=== PATIENT | male | born 1965 | race Caucasian/White ===

== ENCOUNTER → 2019-07-22 11:41 | Outpatient (CLI) | payer MEDICAID, SELFPAY | PROVIDERS: PCP Emergency Medicine; Referring Provider Emergency Medicine; Visit Provider Family Medicine | DX: I87.2 Venous insufficiency (chronic) (peripheral) (principal); L97.221 Non-pressure chronic ulcer of left calf limited to breakdown of skin; R60.0 Localized edema | CPT/HCPCS: 11042; 99203; 99213 ==

== ENCOUNTER → 2019-07-25 09:38 | Outpatient (CLI) | payer MEDICAID, SELFPAY | PROVIDERS: PCP Emergency Medicine; Referring Provider Family Medicine; Visit Provider Family Medicine | DX: I87.2 Venous insufficiency (chronic) (peripheral) (principal); L97.821 Non-pressure chronic ulcer of other part of left lower leg limited to breakdown of skin | CPT/HCPCS: 29581; 87070; 87075; 87077; 87186; 87205 ==

== ENCOUNTER → 2019-08-01 11:25 | Outpatient (CLI) | payer MEDICAID, SELFPAY | PROVIDERS: PCP Emergency Medicine; Referring Provider Emergency Medicine; Visit Provider Family Medicine | DX: I87.2 Venous insufficiency (chronic) (peripheral) (principal); L97.825 Non-pressure chronic ulcer of other part of left lower leg with muscle involvement without evidence of necrosis; L97.225 Non-pressure chronic ulcer of left calf with muscle involvement without evidence of necrosis; B95.7 Other staphylococcus as the cause of diseases classified elsewhere; L08.9 Local infection of the skin and subcutaneous tissue, unspecified | CPT/HCPCS: 11042; 99214 ==

== ENCOUNTER → 2019-08-08 15:22 | Outpatient (CLI) | payer MEDICAID, SELFPAY | PROVIDERS: PCP Emergency Medicine; Referring Provider Emergency Medicine; Visit Provider Family Medicine | DX: I87.2 Venous insufficiency (chronic) (peripheral) (principal); L97.825 Non-pressure chronic ulcer of other part of left lower leg with muscle involvement without evidence of necrosis; I73.9 Peripheral vascular disease, unspecified | CPT/HCPCS: 11042; 99214 ==

== ENCOUNTER → 2019-09-08 16:26 | Outpatient (CLI) | payer OTHER, MEDICAID, SELFPAY | PROVIDERS: PCP Emergency Medicine; Referring Provider Emergency Medicine; Visit Provider Family Medicine | DX: I87.2 Venous insufficiency (chronic) (peripheral) (principal); L97.821 Non-pressure chronic ulcer of other part of left lower leg limited to breakdown of skin; L97.221 Non-pressure chronic ulcer of left calf limited to breakdown of skin; R23.1 Pallor | CPT/HCPCS: 11042; 11045; 99213 ==

== ENCOUNTER → 2019-10-04 11:34 | Outpatient (CLI) | payer OTHER, SELFPAY | PROVIDERS: PCP Emergency Medicine; Referring Provider Emergency Medicine; Visit Provider Family Medicine | DX: I87.2 Venous insufficiency (chronic) (peripheral) (principal); L97.821 Non-pressure chronic ulcer of other part of left lower leg limited to breakdown of skin; R23.1 Pallor | CPT/HCPCS: 99213 ==

== ENCOUNTER → 2019-10-26 10:24 | Outpatient (CLI) | payer OTHER, SELFPAY | PROVIDERS: PCP Emergency Medicine; Referring Provider Emergency Medicine; Visit Provider Family Medicine | DX: I87.2 Venous insufficiency (chronic) (peripheral) (principal); L97.821 Non-pressure chronic ulcer of other part of left lower leg limited to breakdown of skin; R23.1 Pallor | CPT/HCPCS: 99213 ==

== ENCOUNTER → 2019-11-16 14:09 | Outpatient (CLI) | payer OTHER, SELFPAY | PROVIDERS: PCP Emergency Medicine; Referring Provider Emergency Medicine; Visit Provider Family Medicine | DX: I87.2 Venous insufficiency (chronic) (peripheral) (principal); L97.821 Non-pressure chronic ulcer of other part of left lower leg limited to breakdown of skin; R23.1 Pallor | CPT/HCPCS: 99213 ==

== ENCOUNTER → 2019-12-07 13:24 | Outpatient (CLI) | payer OTHER, SELFPAY | PROVIDERS: PCP Emergency Medicine; Referring Provider Emergency Medicine; Visit Provider Family Medicine | DX: I87.2 Venous insufficiency (chronic) (peripheral) (principal); L97.821 Non-pressure chronic ulcer of other part of left lower leg limited to breakdown of skin; R23.1 Pallor | CPT/HCPCS: 99213 ==

== ENCOUNTER → 2019-12-28 10:14 | Outpatient (CLI) | payer OTHER, SELFPAY | PROVIDERS: PCP Emergency Medicine; Referring Provider Emergency Medicine; Visit Provider Family Medicine | DX: I87.2 Venous insufficiency (chronic) (peripheral) (principal); L97.821 Non-pressure chronic ulcer of other part of left lower leg limited to breakdown of skin; R23.1 Pallor | CPT/HCPCS: 87070; 87075; 87077; 87147; 87205; 97597; 99212 ==

== ENCOUNTER → 2020-01-17 13:59 | Outpatient (CLI) | payer OTHER, SELFPAY | PROVIDERS: PCP Emergency Medicine; Referring Provider Emergency Medicine; Visit Provider Family Medicine | DX: I87.2 Venous insufficiency (chronic) (peripheral) (principal); L97.821 Non-pressure chronic ulcer of other part of left lower leg limited to breakdown of skin; R23.1 Pallor; S81.012A Laceration without foreign body, left knee, initial encounter; B95.1 Streptococcus, group B, as the cause of diseases classified elsewhere | CPT/HCPCS: 11042; 97597; 99213; 99214 ==

== ENCOUNTER → 2020-06-13 12:39 | Outpatient (CLI) | payer OTHER, MEDICAID, SELFPAY ==
--- NOTE | 2020-06-13 12:44 | DI.RAD.S_ITS ---
PROCEDURE: XR CHEST 2V INDICATIONS: dyspnea TECHNIQUE: 2 views of the chest were acquired. COMPARISON: None. FINDINGS: Surgical changes and devices: None. Lungs and pleura: Lungs are clear. No pleural effusions or pneumothorax. Mediastinum: Mediastinal contours are normal. Heart size is enlarged. Bones and chest wall: No suspicious bony abnormalities. Soft tissues appear unremarkable. IMPRESSION: Cardiomegaly. Dictated by: Herbert Lozoya [facility] Interpreted: Kishan Montiel MD on 06/13/2020 at 13:20 Approved by: Kishan Montiel M.D. on 06/13/2020 at 15:28
[2020-06-13 13:36] LABS: Add Manual Diff / Slide Review NO; Basophils Absolute Auto 0 /uL (0-100); Basophils Percent Auto 0.4 % (0-2); Eosinophils Absolute Auto 200 /uL (0-450); Eosinophils Percent Auto 1.9 % (2-4); Hematocrit 51.3 % (41-53); Hemoglobin 17.3 g/dL (13.5-17.5); Lymphocytes Absolute Auto 2100 /uL (1100-4500); Lymphocytes Percent Auto 25.7 % (25-40); Mean Corpuscular HGB Conc 33.8 % (30-36); Mean Corpuscular Hemoglobin 29.6 PG (26-34); Mean Corpuscular Volume 87.5 fL (80-100); Monocytes Absolute Auto 600 /uL (0-900); Neutrophils Absolute Auto 5300 /uL (1500-7000); Platelet Count 210 X10^3/uL (150-400); Red Blood Cell Count 5.87 X10^6/uL (4.5-5.9); Red Cell Distribution Width 14.5 % (11.6-14.8); White Blood Cell Count 8.1 X10^3/uL (4.5-11.0)
[2020-06-13 13:45] LABS: Hemoglobin A1C% w Est Avg Glu 6.3 % (4.0-6.0)
[2020-06-13 13:53] LABS: Alanine Aminotransferase 42 IU/L (<50); Albumin 4.2 g/dL (3.5-5.0); Albumin Globulin Ratio 1.5 (1.0-2.8); Alkaline Phosphatase 69 U/L (38-126); Aspartate Aminotransferase 40 IU/L (17-59); BUN Creatinine Ratio 26.1 (6-22); Bilirubin Total 0.9 mg/dL (0.2-1.3); Blood Urea Nitrogen 23 mg/dL (9-20); Calcium 9.1 mg/dL (8.4-10.2); Carbon Dioxide 34 mmol/L (22-32); Chloride 98 mmol/L (98-107); Cholesterol 174 mg/dL (140-199); Estimated Glomerular Filt Rate > 60.0 mL/min (>60); Globulin 2.8 g/dL (1.7-4.1); Glucose 110 mg/dL (70-100); HDL Cholesterol 33 mg/dL (40-60); LDL Cholesterol Calculated 108 mg/dL (<100); Potassium 4.2 mmol/L (3.4-5.1); Sodium 138 mmol/L (137-145); Triglycerides 167 mg/dL (35-150)
[2020-06-13 14:20] LABS: TSH w/ Reflex to FT4 1.74 uIU/mL (0.47-4.68)
[2020-06-13 14:25] LABS: HEMOLYSIS < 15 (0-50); Prostate Specific Antigen Scrn 0.337 ng/mL (0.1-4.0)
[2020-06-14 16:41] LABS: Hep C Virus Ab w/Reflex Quant NEGATIVE s/c (NEGATIVE)
== END ==
PROVIDERS: PCP Internal Medicine; Referring Provider Internal Medicine; Visit Provider Internal Medicine
DX: J44.9 Chronic obstructive pulmonary disease, unspecified (principal); I10 Essential (primary) hypertension; R73.9 Hyperglycemia, unspecified; Z13.1 Encounter for screening for diabetes mellitus; Z13.220 Encounter for screening for lipoid disorders; Z13.6 Encounter for screening for cardiovascular disorders; Z12.5 Encounter for screening for malignant neoplasm of prostate
CPT/HCPCS: 36415; 71046; 80053; 80061; 83036; 84443; 85025; 86803; G0103

== ENCOUNTER → 2020-07-19 13:00 | Outpatient (CLI) | payer OTHER, MEDICAID, SELFPAY ==
[2020-07-19 13:49] LABS: COVID19 -Nasal RAPID Negative (Negative)
== END ==
PROVIDERS: PCP Internal Medicine; Referring Provider Internal Medicine; Visit Provider Internal Medicine
DX: Z20.822 Contact with and (suspected) exposure to COVID-19 (principal)
CPT/HCPCS: 87635; C9803

== ENCOUNTER 2020-07-19 13:23 | Emergency (ER) | payer OTHER, MEDICAID, SELFPAY ==
[2020-07-19 13:28] VITALS: BP 185/108; PULSE 54; RESP 28; TEMP 36.2; O2SAT 94; BMI 41.9
--- NOTE | 2020-07-19 19:11 | ED.SOB ---
HPI - SOB/Dyspnea General Chief Complaint: Shortness of Breath/Dyspnea Stated Complaint: SOB Source: patient Mode of arrival: Wheelchair Limitations: no limitations Related Data Previous Rx's Medication Instructions Recorded lisinopril 20 mg tablet 20 mg PO DAILY #90 tab 06/11/20 albuterol sulfate 90 mcg/actuation 2 puff INHALATION Q4-6H PRN #18 g 07/09/20 aerosol inhaler Allergies Allergy/AdvReac Type Severity Reaction Status Date / Time codeine Allergy Unknown Verified 07/19/20 13:29 meperidine [From DEMEROL] Allergy Unknown CRAWL OUT Verified 07/19/20 13:29 OF SKIN Patient History Medical History (Updated 07/19/20 @ 14:12 by Patrizia Dee, RN) BMI 39.0-39.9,adult Chicken pox COPD (chronic obstructive pulmonary disease) (~2019) Family history not known due to adoption Hypertension Surgical History (Updated 06/12/20 @ 21:23 by Christiana Zhong) Anesthesia Status post debridement (~2019) Social History (Updated 09/15/19 @ 14:40 by Jenny Qureshi RN) Smoking Status: Former smoker alcohol intake: never substance use type: marijuana Smoking Status: Former smoker alcohol intake frequency: holidays/special occasions only Substance Use Type: marijuana Exam Initial Vital Signs Initial Vital Signs: Vital Signs Temperature 97.1 F L 07/19/20 13:28 Pulse Rate 54 L 07/19/20 13:28 Respiratory Rate 28 H 07/19/20 13:28 Blood Pressure 185/108 H 07/19/20 13:28 Pulse Oximetry 94 07/19/20 13:28 Course Vital Signs Vital signs: Vital Signs - 8 hr 07/19/20 13:28 Temperature 97.1 F L Pulse Rate 54 L Respiratory Rate 28 H Blood Pressure 185/108 H Pulse Oximetry 94 Discharge Plan Departure Patient Disposition: Left Without Being Seen Clinical Impression: Patient left without being seen
== END 2020-07-19 14:00 | disposition left against medical advice (07) ==
PROVIDERS: Emergency Provider Emergency Medicine; PCP Internal Medicine
DX: R06.02 Shortness of breath (principal)
CPT/HCPCS: 99281

== ENCOUNTER 2020-07-20 15:13 | Emergency (ER) | payer OTHER, MEDICAID, SELFPAY ==
[2020-07-20] VITALS (13 sets, daily range): BP systolic 150–193; BP diastolic 81–164; PULSE 88–97; RESP 10–30; TEMP 32–37; O2SAT 91–98; BMI 45.1
--- NOTE | 2020-07-20 15:17 | DI.RAD.S_ITS ---
PROCEDURE: XR CHEST 1V INDICATIONS: Shortness of breath and hypoxia TECHNIQUE: One view of the chest was acquired. COMPARISON: [facility], [place], XR CHEST 2V, 06/13/2020, 12:56. FINDINGS: Surgical changes and devices: None. Lungs and pleura: Mild pulmonary vascular congestion is seen. No focal infiltrate. No pleural effusions or pneumothorax. Mediastinum: Mediastinal contours appear normal. Heart size is enlarged. Bones and chest wall: No suspicious bony lesions. Overlying soft tissues appear unremarkable. IMPRESSION: Cardiomegaly and mild congestion. No definite focal infiltrate. No pleural effusion or pneumothorax. Dictated by: Nacho Gaitan M.D. on 07/20/2020 at 15:54 Approved by: Nacho Gaitan M.D. on 07/20/2020 at 15:56
--- NOTE | 2020-07-20 15:25 | ED.GENADULT ---
HPI - General Adult General Chief complaint: Shortness of Breath/Dyspnea Stated complaint: SOB Time Seen by Provider: 07/20/20 15:15 Source: patient Mode of arrival: Wheelchair Limitations: no limitations History of Present Illness HPI narrative: 55-year-old male who is brought to the emergency department from the respiratory clinic after he was found to be hypoxic and blue and ashen in color. Report was that yesterday the patient went to the respiratory clinic for a COVID test because of a schedule pulmonary function test today. When he had the COVID test performed he was noticed to be hypoxic and in respiratory distress. He is brought to the emergency department after being triaged he left the department. He returned to the respiratory clinic today for his pulmonary function test and was again found to be hypoxic in look very poorly so was brought to the emergency department. Patient is here with his girlfriend. They state that over the past month he has gained approximately 30 lb and has had 10 lb weight gain over the past week. He has also had respiratory distress. He does have a new primary doctor which she has seen 2 times. The pulmonary function test were ordered by his primary doctor because of his respiratory issues. Patient denies any chest pain. He states that he feels like he is swollen all over. He does have a history of high blood pressure. Has not seen a primary doctor in a very long time until just the past 30-60 days. Related Data Previous Rx's Medication Instructions Recorded lisinopril 20 mg tablet 20 mg PO DAILY #90 tab 06/11/20 albuterol sulfate 90 mcg/actuation 2 puff INHALATION Q4-6H PRN #18 g 07/09/20 aerosol inhaler Allergies Allergy/AdvReac Type Severity Reaction Status Date / Time codeine Allergy Unknown Verified 07/20/20 15:26 meperidine [From DEMEROL] Allergy Unknown CRAWL OUT Verified 07/20/20 15:26 OF SKIN Review of Systems Constitutional Constitutional: Denies fever(s) and Denies headache(s) Eyes Eyes: Denies change in vision Comments: Swelling around eyes ENT Ears, Nose, Mouth, and Throat: Denies headache(s) and Denies sinus pain Cardiovascular Cardiovascular: Denies chest pain, Reports dyspnea and Reports dyspnea on exertion Respiratory Respiratory: Denies cough, Reports dyspnea, Reports dyspnea on exertion and Denies wheezing Gastrointestinal Gastrointestinal: Denies abdominal pain, Reports bloating, Denies change in bowel habits, Denies nausea and Denies vomiting Genitourinary Genitourinary: Denies dysuria Genitourinary: Denies dysuria Musculoskeletal Musculoskeletal: Denies arthralgias and Denies myalgias Integumentary/Breasts Skin/Breast: Denies lesions and Denies rash Neurologic Neurologic: Denies behavioral changes, Denies confusion and Denies headache(s) Psychiatric Psychiatric: Denies behavioral changes and Denies confusion Hematologic/Lymphatic Hematologic/Lymphatic: Denies easy bleeding On Anticoagulants: No Allergic/Immunologic Allergic/Immunologic: Denies urticaria and Denies wheezing Patient History Medical History BMI 39.0-39.9,adult Chicken pox COPD (chronic obstructive pulmonary disease) (~2019) Family history not known due to adoption Hypertension Surgical History (Updated 06/12/20 @ 21:23 by Christiana Zhong) Anesthesia Status post debridement (~2019) Social History Smoking Status: Former smoker alcohol intake: never substance use type: marijuana Smoking Status: Former smoker alcohol intake frequency: holidays/special occasions only Substance Use Type: marijuana Exam Initial Vital Signs Initial Vital Signs: Vital Signs Pulse Rate 96 H 07/20/20 15:18 Respiratory Rate 23 07/20/20 15:18 Pulse Oximetry 98 07/20/20 15:18 Const General: cooperative, comfortable and well developed Limitations: mental status not altered HENMT Head: normal to inspection and normocephalic Eyes Periorbital: periorbital findings abnormal bilaterally periorbital swelling Neck Neck: anterior neck swelling Chest Chest: No crepitus and No tenderness Resp Effort & Inspection: labored and tachypneic Auscultation: rhonchi Cardio Rate: regular rate Rhythm: regular rhythm GI Inspection: distended Palpation: firm and No tender General: bladder normal to palpation Skin Other: Patient does have some superficial lesions to his right knee that do not appear to be infected. Also has other various wounds in various stages of healing throughout his body. Neuro General: patient alert, patient awake, patient oriented x3 and moves all extremities Other: Patient is somnolent but easily arousable Extrem General: normal to inspection and edema Psych Appearance: grossly normal and well kempt Scores GCS [place] coma scale eye opening: Spontaneous Titi coma scale verbal response: Orientated Itti coma scale motor response: Obey commands [place] coma scale total score: 15 Course Orders Ordered: ED Orders 07/20/20 15:16 Complete Blood Count AUTO DIFF Stat Comprehensive Metabolic Panel Stat D Dimer Stat Lactate (Lactic Acid) Stat Lipase Stat NT-proBNP (BNP-Adult 18+) Stat Partial Thromboplastin Time Stat Procalcitonin Stat Prothrombin Time INR Stat Troponin & CK Cardiac Panel Stat 07/20/20 15:17 XR chest 1V Stat EKG-12 Lead Stat 07/20/20 15:23 Arterial Blood Gas Stat 07/20/20 15:39 COVID19 - 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 (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/PCR) Stat 07/20/20 17:04 Arterial Blood Gas Stat Discontinued Medications Furosemide (Furosemide 100 Mg/10 Ml Vial) 60 mg IV NOW ONE Stop: 07/20/20 15:26 Last Admin: 07/20/20 15:33 Dose: 60 mg Documented by: BORIS Nitroglycerin (Nitroglycerin Oint 1 Inch/Gm Oint...G.) 1 inch TOP NOW ONE Stop: 07/20/20 15:26 Last Admin: 07/20/20 15:33 Dose: 1 inch Documented by: BORIS Vital Signs Vital signs: Vital Signs - 8 hr 07/20/20 15:18 07/20/20 15:21 07/20/20 15:30 Temperature 98.6 F Pulse Rate 96 H 97 H 96 H Respiratory Rate 23 24 29 H Blood Pressure 187/164 H Pulse Oximetry 98 94 95 07/20/20 15:31 07/20/20 15:33 07/20/20 15:53 Temperature Pulse Rate 97 H 96 H 96 H Respiratory Rate 25 H 19 Blood Pressure 193/133 H 193/133 H 176/141 H Pulse Oximetry 97 96 07/20/20 16:00 07/20/20 17:00 07/20/20 17:39 Temperature Pulse Rate 96 H 89 Respiratory Rate 24 22 Blood Pressure 171/108 H Pulse Oximetry 96 96 94 07/20/20 17:52 07/20/20 18:00 Temperature Pulse Rate 91 H 88 Respiratory Rate 22 22 Blood Pressure 164/89 H 150/81 H Pulse Oximetry 91 94 Medical Decision Making Medical Records Medical records reviewed: Yes I reviewed the patient's medical records. Lab Data Lab results reviewed: Yes I reviewed the patient's lab results. Result diagrams: 07/20/20 15:16 07/20/20 15:16 Labs: Lab Results 07/20/20 07/20/20 07/20/20 Range/Units 15:16 15:16 15:16 WBC 10.1 (4.5-11.0) X10^3/uL RBC 5.66 (4.5-5.9) X10^6/uL Hgb 16.8 (13.5-17.5) g/dL Hct 51.2 (41-53) % MCV 90.4 (80-100) fL MCH 29.7 (26-34) PG MCHC 32.9 (30-36) % RDW 15.6 H (11.6-14.8) % Plt Count 231 (150-400) X10^3/uL Neut % (Auto) 80.2 H (50-75) % Lymph % (Auto) 12.6 L (25-40) % Dickson % (Auto) 6.6 (3-14) % Eos % (Auto) 0.0 L (2-4) % Baso % (Auto) 0.6 (0-2) % Neut # (Auto) 8100 H (1171-6247) /uL Lymph # (Auto) 1300 (6606-3291) /uL Dickson # (Auto) 700 (0-900) /uL Eos # (Auto) 0 (0-450) /uL Baso # (Auto) 100 (0-100) /uL PT 16.8 H (10.1-12.7) SECONDS INR 1.5 H (0.9-1.3) APTT 35 (26.4-36.2) SECONDS D-Dimer (<230) ng/mL ABG pH (7.35-7.45) ABG pCO2 (35-45) mmHg ABG pO2 (80-100) mmHg ABG HCO3 (22-26) mmol/L ABG Total CO2 (21-31) mmol/L ABG O2 Saturation (95-100) % ABG Base Excess (-2-2) mmol/L FiO2 Sodium 139 (137-145) mmol/L Potassium 4.7 (3.4-5.1) mmol/L Chloride 100 (98-107) mmol/L Carbon Dioxide 35 H (22-32) mmol/L BUN 21 H (9-20) mg/dL Creatinine 0.87 (0.66-1.25) mg/dL Estimated GFR > 60.0 (>60) mL/min BUN/Creatinine Ratio 24.1 H (6-22) Glucose 116 H (70-100) mg/dL Lactate (0.7-2.1) mmol/L Calcium 8.7 (8.4-10.2) mg/dL Total Bilirubin 0.5 (0.2-1.3) mg/dL AST 89 H (17-59) IU/L ALT 71 H (<50) IU/L Alkaline Phosphatase 58 (38-126) U/L Total Creatine Kinase 591 H (55-170) U/L CK-MB (CK-2) 12.60 H (<2.37) ng/mL CK-MB (CK-2) Rel Index 2.1 (1.5-5.0) % Troponin I 0.099 H (0.01-0.034) ng/mL NT-Pro-B Natriuret Pep 43528 H (<125) pg/mL Total Protein 5.8 L (6.3-8.2) g/dL Albumin 3.2 L (3.5-5.0) g/dL Globulin 2.6 (1.7-4.1) g/dL Albumin/Globulin Ratio 1.2 (1.0-2.8) Lipase 80 (23-300) U/L Procalcitonin (<0.5) ng/mL SARS-CoV-2 (PCR) (Negative) 07/20/20 07/20/20 07/20/20 Range/Units 15:16 15:16 15:16 WBC (4.5-11.0) X10^3/uL RBC (4.5-5.9) X10^6/uL Hgb (13.5-17.5) g/dL Hct (41-53) % MCV (80-100) fL MCH (26-34) PG MCHC (30-36) % RDW (11.6-14.8) % Plt Count (150-400) X10^3/uL Neut % (Auto) (50-75) % Lymph % (Auto) (25-40) % Dickson % (Auto) (3-14) % Eos % (Auto) (2-4) % Baso % (Auto) (0-2) % Neut # (Auto) (6655-2126) /uL Lymph # (Auto) (8063-9043) /uL Dickson # (Auto) (0-900) /uL Eos # (Auto) (0-450) /uL Baso # (Auto) (0-100) /uL PT (10.1-12.7) SECONDS INR (0.9-1.3) APTT (26.4-36.2) SECONDS D-Dimer 357 H (<230) ng/mL ABG pH (7.35-7.45) ABG pCO2 (35-45) mmHg ABG pO2 (80-100) mmHg ABG HCO3 (22-26) mmol/L ABG Total CO2 (21-31) mmol/L ABG O2 Saturation (95-100) % ABG Base Excess (-2-2) mmol/L FiO2 Sodium (137-145) mmol/L Potassium (3.4-5.1) mmol/L Chloride (98-107) mmol/L Carbon Dioxide (22-32) mmol/L BUN (9-20) mg/dL Creatinine (0.66-1.25) mg/dL Estimated GFR (>60) mL/min BUN/Creatinine Ratio (6-22) Glucose (70-100) mg/dL Lactate 1.7 (0.7-2.1) mmol/L Calcium (8.4-10.2) mg/dL Total Bilirubin (0.2-1.3) mg/dL AST (17-59) IU/L ALT (<50) IU/L Alkaline Phosphatase (38-126) U/L Total Creatine Kinase (55-170) U/L CK-MB (CK-2) (<2.37) ng/mL CK-MB (CK-2) Rel Index (1.5-5.0) % Troponin I (0.01-0.034) ng/mL NT-Pro-B Natriuret Pep (<125) pg/mL Total Protein (6.3-8.2) g/dL Albumin (3.5-5.0) g/dL Globulin (1.7-4.1) g/dL Albumin/Globulin Ratio (1.0-2.8) Lipase (23-300) U/L Procalcitonin 0.07 (<0.5) ng/mL SARS-CoV-2 (PCR) (Negative) 07/20/20 07/20/20 07/20/20 Range/Units 15:23 15:39 17:04 WBC (4.5-11.0) X10^3/uL RBC (4.5-5.9) X10^6/uL Hgb (13.5-17.5) g/dL Hct (41-53) % MCV (80-100) fL MCH (26-34) PG MCHC (30-36) % RDW (11.6-14.8) % Plt Count (150-400) X10^3/uL Neut % (Auto) (50-75) % Lymph % (Auto) (25-40) % Dickson % (Auto) (3-14) % Eos % (Auto) (2-4) % Baso % (Auto) (0-2) % Neut # (Auto) (1903-8855) /uL Lymph # (Auto) (7604-0382) /uL Dickson # (Auto) (0-900) /uL Eos # (Auto) (0-450) /uL Baso # (Auto) (0-100) /uL PT (10.1-12.7) SECONDS INR (0.9-1.3) APTT (26.4-36.2) SECONDS D-Dimer (<230) ng/mL ABG pH 7.30 L 7.37 (7.35-7.45) ABG pCO2 68.2 H* 64.1 H* (35-45) mmHg ABG pO2 84 76 L (80-100) mmHg ABG HCO3 34 H 37 H (22-26) mmol/L ABG Total CO2 36 H 39 H (21-31) mmol/L ABG O2 Saturation 95 94 L (95-100) % ABG Base Excess 8.0 H 12.0 H (-2-2) mmol/L FiO2 28 30 Sodium (137-145) mmol/L Potassium (3.4-5.1) mmol/L Chloride (98-107) mmol/L Carbon Dioxide (22-32) mmol/L BUN (9-20) mg/dL Creatinine (0.66-1.25) mg/dL Estimated GFR (>60) mL/min BUN/Creatinine Ratio (6-22) Glucose (70-100) mg/dL Lactate (0.7-2.1) mmol/L Calcium (8.4-10.2) mg/dL Total Bilirubin (0.2-1.3) mg/dL AST (17-59) IU/L ALT (<50) IU/L Alkaline Phosphatase (38-126) U/L Total Creatine Kinase (55-170) U/L CK-MB (CK-2) (<2.37) ng/mL CK-MB (CK-2) Rel Index (1.5-5.0) % Troponin I (0.01-0.034) ng/mL NT-Pro-B Natriuret Pep (<125) pg/mL Total Protein (6.3-8.2) g/dL Albumin (3.5-5.0) g/dL Globulin (1.7-4.1) g/dL Albumin/Globulin Ratio (1.0-2.8) Lipase (23-300) U/L Procalcitonin (<0.5) ng/mL SARS-CoV-2 (PCR) Negative (Negative) Imaging Data Chest x-ray: Radiologist's Impression: [address] [id number] ReportSigned Patient: Get Nielsen R#: [id number]: 1965Acct:[id number]/Sex: 55 / MDate of Service: 07/20/20Loc: EDAccession Number: [id number] Procedure: XR chest 1V Ordering Provider: Lc Corona D.O. PROCEDURE: XR CHEST 1V INDICATIONS: Shortness of breath and hypoxia TECHNIQUE: One view of the chest was acquired. COMPARISON: [facility], [place], XR CHEST 2V, 06/13/2020, 12:56. FINDINGS: Surgical changes and devices: None. Lungs and pleura: Mild pulmonary vascular congestion is seen. No focal infiltrate. No pleural effusions or pneumothorax. Mediastinum: Mediastinal contours appear normal. Heart size is enlarged. Bones and chest wall: No suspicious bony lesions. Overlying soft tissues appear unremarkable. IMPRESSION: Cardiomegaly and mild congestion. No definite focal infiltrate. No pleural effusion or pneumothorax. Dictated by: Nacho Gaitan M.D. on 07/20/2020 at 15:54 Approved by: Nacho Gaitan M.D. on 07/20/2020 at 15:56 ECG Data Attestation: I personally reviewed and interpreted this ECG as follows: Prior ECG tracings: not available for review Interpretation: Sinus rhythm Ventricular rate of 96 Frequent PVCs in a bigeminy pattern QTC [address]-T changes MDM Narrative Medical decision making narrative: Patient did arrive somnolent but was arousable. He does have anasarca. Swollen from his toes up to his eyelids. Has had a 10 lb weight gain over the past week. Is hypertensive. Is tachypneic. Initial ABG shows pH is 7.3 PCO2 68.2. Given his somnolence and his presentation of CHF he was placed on BiPAP. He did seem to improve with this and was subsequently removed from BiPAP after repeat EKG shows a pH is 7.372 with a pCO2 of 64. He did become more alert. Was given Lasix and Urinated greater than 1.5 L. He did feel much better afterwards. Was given nitro paste. This did improve his blood pressure. His COVID was negative. Chest x-ray shows no signs of pneumonia. Was not given any antibiotics. Condition did improve with treatment here in the emergency department. No did discuss the case with his primary provider who thought that since it was the weekend that he should be transferred to a facility that has cardiology also pulmonology. I did discuss the case with Dr. Tello with Internal Medicine at [facility] accepts the patient in transfer. Patient is currently stable for transport. Discussed all this with the patient and his girlfriend at bedside. They expressed understanding and agreement. Critical Care Time Critical Care Time Critical Care Time: Yes Total Critical Care Time: 35 Attestation: The high probability of a clinically significant, sudden or life threatening deterioration of the respiratory, cardiovascular system(s) required my full and direct attention, intervention and personal management. The aggregate critical care time was 35 minutes. This time is in addition to time spent performing reported procedures but includes the following: [X] Data Review and interpretation [X] Patient assessment and monitoring of vital signs [X] Documentation [X] Medication orders and management Discharge Plan Departure Patient Disposition: [facility] Clinical Impression: Acute CHF (congestive heart failure), Hypertension, Acute respiratory distress, Anasarca Prescriptions: No Action lisinopril 20 mg tablet 20 mg PO DAILY Qty: 90 RF: 3 albuterol sulfate 90 mcg/actuation HFA aerosol inhaler 2 puff inhalation Q4-6H PRN (Reason: shortness of breath or wheezing) Qty: 18 RF: 3 Referrals: Moe Ricks MD [Primary Care Provider] -
[2020-07-20 15:29] LABS: Add Manual Diff / Slide Review NO; Basophils Absolute Auto 100 /uL (0-100); Basophils Percent Auto 0.6 % (0-2); Eosinophils Absolute Auto 0 /uL (0-450); Hematocrit 51.2 % (41-53); Hemoglobin 16.8 g/dL (13.5-17.5); Lymphocytes Absolute Auto 1300 /uL (1100-4500); Lymphocytes Percent Auto 12.6 % (25-40); Mean Corpuscular HGB Conc 32.9 % (30-36); Mean Corpuscular Hemoglobin 29.7 PG (26-34); Mean Corpuscular Volume 90.4 fL (80-100); Monocytes Absolute Auto 700 /uL (0-900); Monocytes Percent Auto 6.6 % (3-14); Neutrophils Absolute Auto 8100 /uL (1500-7000); Neutrophils Percent Auto 80.2 % (50-75); Platelet Count 231 X10^3/uL (150-400); Red Blood Cell Count 5.66 X10^6/uL (4.5-5.9); Red Cell Distribution Width 15.6 % (11.6-14.8); White Blood Cell Count 10.1 X10^3/uL (4.5-11.0)
[2020-07-20] MEDS: FUROSEMIDE 100 MG/10 ML VIAL 60 MG IV (15:33)
[2020-07-20] MEDS: NITROGLYCERIN OINT 1 INCH/GM OINT...G. TOP (15:33)
[2020-07-20 15:34] LABS: INR 1.5 (0.9-1.3); Prothrombin Time 16.8 SECONDS (10.1-12.7)
[2020-07-20 15:35] LABS: Fractionated Inspired Oxygen 28; HCO3 ABG 34 mmol/L (22-26); Oxygen Saturation ABG 95 % (95-100); PCO2 ABG 68.2 mmHg (35-45); PO2 ABG 84 mmHg (80-100); TCO2 ABG 36 mmol/L (21-31)
[2020-07-20 15:36] LABS: PTT Partial Thromboplastin Tim 35 SECONDS (26.4-36.2)
[2020-07-20 16:04] LABS: Alanine Aminotransferase 71 IU/L (<50); Albumin 3.2 g/dL (3.5-5.0); Albumin Globulin Ratio 1.2 (1.0-2.8); Alkaline Phosphatase 58 U/L (38-126); Aspartate Aminotransferase 89 IU/L (17-59); BUN Creatinine Ratio 24.1 (6-22); Bilirubin Total 0.5 mg/dL (0.2-1.3); Blood Urea Nitrogen 21 mg/dL (9-20); Calcium 8.7 mg/dL (8.4-10.2); Carbon Dioxide 35 mmol/L (22-32); Chloride 100 mmol/L (98-107); Creatine Kinase 591 U/L (55-170); Estimated Glomerular Filt Rate > 60.0 mL/min (>60); Globulin 2.6 g/dL (1.7-4.1); Glucose 116 mg/dL (70-100); HEMOLYSIS 31 (0-50); Lipase 80 U/L (23-300); Potassium 4.7 mmol/L (3.4-5.1); Sodium 139 mmol/L (137-145); Total Protein 5.8 g/dL (6.3-8.2)
[2020-07-20 16:05] LABS: Lactate (Lactic Acid) 1.7 mmol/L (0.7-2.1)
[2020-07-20 16:07] LABS: D Dimer 357 ng/mL (<230)
--- NOTE | 2020-07-20 16:11 | PC.NURSE ---
upon arrival to ER patient has generalized edema with abrasions and rash all over body. right knee with open wound. girlfriend, Leonor states that he went to the wound clinic one year ago for wounds. pvd present. face, including eyes are very swollen. pt is very sleepy upon arrival to ER.
[2020-07-20 16:16] LABS: NT-proBNP (BNP-Adult 18+) 10700 pg/mL (<125); Troponin I 0.099 ng/mL (0.01-0.034)
--- NOTE | 2020-07-20 16:17 | PC.NURSE ---
condom catheter placed. Ot is able to void without difficulty. scrotum and penis are quite swollen.
[2020-07-20 16:20] LABS: CKMB % Relative Index 2.1 % (1.5-5.0)
[2020-07-20 16:22] LABS: Procalcitonin 0.07 ng/mL (<0.5)
[2020-07-20 16:55] LABS: COVID19 - ADMIT (NP swab/PCR) Negative (Negative)
[2020-07-20 17:12] LABS: Fractionated Inspired Oxygen 30; HCO3 ABG 37 mmol/L (22-26); Oxygen Saturation ABG 94 % (95-100); PCO2 ABG 64.1 mmHg (35-45); PO2 ABG 76 mmHg (80-100); TCO2 ABG 39 mmol/L (21-31); pH ABG 7.37 (7.35-7.45)
--- NOTE | 2020-07-20 17:17 | PC.NURSE ---
bipap 16/8, fio2 30 percent, rate of 10. abg drawn. pt is tolerating bipap without difficulty. remains drowsy.
--- NOTE | 2020-07-20 17:45 | PC.NURSE ---
pt taken off bipap by RT Herbert and placed on oxygen at [facility].
== END 2020-07-20 19:34 | disposition short-term general hospital (02) ==
PROVIDERS: Emergency Provider Emergency Medicine; PCP Internal Medicine; Referring Provider Emergency Medicine
DX: I11.0 Hypertensive heart disease with heart failure (principal); I50.9 Heart failure, unspecified; R06.03 Acute respiratory distress; Z20.822 Contact with and (suspected) exposure to COVID-19
CPT/HCPCS: 36415; 36600; 71045; 80053; 82550; 82553; 82805; 83605; 83690; 83880; 84145; 84484; 85025; 85379; 85610; 85730; 87635; 93005; 94660; 96374; 99285; 99291; C9803; J1940

== ENCOUNTER → 2020-08-07 15:36 | Outpatient (CLI) | payer OTHER, MEDICAID, SELFPAY ==
[2020-07-30 14:40] VITALS: PULSE 95; RESP 24; O2SAT 98
[2020-08-07 17:24] LABS: BUN Creatinine Ratio 24.1 (6-22); Blood Urea Nitrogen 21 mg/dL (9-20); Calcium 9.6 mg/dL (8.4-10.2); Carbon Dioxide 28 mmol/L (22-32); Chloride 103 mmol/L (98-107); Estimated Glomerular Filt Rate > 60.0 mL/min (>60); Glucose 124 mg/dL (70-100); HEMOLYSIS < 15 (0-50); Potassium 4.4 mmol/L (3.4-5.1); Sodium 138 mmol/L (137-145)
== END ==
PROVIDERS: PCP Internal Medicine; Referring Provider Internal Medicine; Visit Provider Internal Medicine
DX: I10 Essential (primary) hypertension (principal); I50.9 Heart failure, unspecified
CPT/HCPCS: 36415; 80048

== ENCOUNTER → 2020-11-09 11:17 | Outpatient (CLI) | payer OTHER, MEDICAID, SELFPAY ==
[2020-07-30 14:40] VITALS: PULSE 95; RESP 24; O2SAT 98
[2020-11-09 12:28] LABS: BUN Creatinine Ratio 27.5 (6-22); Blood Urea Nitrogen 28 mg/dL (9-20); Calcium 9.6 mg/dL (8.4-10.2); Carbon Dioxide 26 mmol/L (22-32); Chloride 103 mmol/L (98-107); Estimated Glomerular Filt Rate > 60.0 mL/min (>60); Glucose 91 mg/dL (70-100); HEMOLYSIS 24 (0-50); Potassium 4.2 mmol/L (3.4-5.1); Sodium 138 mmol/L (137-145)
[2020-11-09 14:31] LABS: Hemoglobin A1C% w Est Avg Glu 5.9 % (4.0-6.0)
== END ==
PROVIDERS: PCP Internal Medicine; Referring Provider Internal Medicine; Visit Provider Internal Medicine
DX: I10 Essential (primary) hypertension (principal); I42.9 Cardiomyopathy, unspecified; I50.9 Heart failure, unspecified; J44.9 Chronic obstructive pulmonary disease, unspecified
CPT/HCPCS: 36415; 80048; 83036

== ENCOUNTER → 2021-06-03 10:07 | Outpatient (CLI) | payer OTHER, MEDICAID, SELFPAY ==
[2021-03-01 11:43] VITALS: PULSE 95; RESP 24; O2SAT 98
[2021-06-03 13:42] LABS: Alanine Aminotransferase 30 IU/L (<50); Albumin 4.3 g/dL (3.5-5.0); Albumin Globulin Ratio 1.5 (1.0-2.8); Alkaline Phosphatase 59 U/L (38-126); Aspartate Aminotransferase 40 IU/L (17-59); BUN Creatinine Ratio 26.4 (6-22); Bilirubin Total 0.5 mg/dL (0.2-1.3); Blood Urea Nitrogen 24 mg/dL (9-20); Calcium 9.3 mg/dL (8.4-10.2); Carbon Dioxide 30 mmol/L (22-32); Chloride 104 mmol/L (98-107); Cholesterol 125 mg/dL (140-199); Estimated Glomerular Filt Rate > 60.0 mL/min (>60); Globulin 2.9 g/dL (1.7-4.1); Glucose 109 mg/dL (70-100); HDL Cholesterol 29 mg/dL (40-60); HEMOLYSIS < 15 (0-50); LDL Cholesterol Calculated 58 mg/dL (<100); Potassium 4.2 mmol/L (3.4-5.1); Sodium 140 mmol/L (137-145); Total Protein 7.2 g/dL (6.3-8.2); Triglycerides 190 mg/dL (35-150)
== END ==
PROVIDERS: PCP Internal Medicine; Referring Provider Internal Medicine; Visit Provider Internal Medicine
DX: E66.2 Morbid (severe) obesity with alveolar hypoventilation (principal); I10 Essential (primary) hypertension; I42.9 Cardiomyopathy, unspecified; J44.9 Chronic obstructive pulmonary disease, unspecified
CPT/HCPCS: 36415; 80053; 80061

== ENCOUNTER → 2022-06-12 14:04 | Outpatient (CLI) | payer OTHER, MEDICAID, SELFPAY ==
[2021-03-01 11:43] VITALS: PULSE 95; RESP 24; O2SAT 98
[2022-06-12 14:35] LABS: Add Manual Diff / Slide Review NO; Basophils Absolute Auto 0 /uL (0-100); Basophils Percent Auto 0.5 % (0-2); Eosinophils Absolute Auto 200 /uL (0-450); Eosinophils Percent Auto 2.4 % (2-4); Hematocrit 46.8 % (41-53); Hemoglobin 16.2 g/dL (13.5-17.5); Lymphocytes Absolute Auto 2400 /uL (1100-4500); Mean Corpuscular HGB Conc 34.7 % (30-36); Mean Corpuscular Hemoglobin 29.7 PG (26-34); Mean Corpuscular Volume 85.5 fL (80-100); Monocytes Absolute Auto 700 /uL (0-900); Monocytes Percent Auto 9.4 % (3-14); Neutrophils Absolute Auto 4000 /uL (1500-7000); Neutrophils Percent Auto 54.7 % (50-75); Platelet Count 193 X10^3/uL (150-400); Red Blood Cell Count 5.47 X10^6/uL (4.5-5.9); Red Cell Distribution Width 14.2 % (11.6-14.8); White Blood Cell Count 7.3 X10^3/uL (4.5-11.0)
[2022-06-12 14:51] LABS: Alanine Aminotransferase 40 IU/L (<50); Albumin 4.5 g/dL (3.5-5.0); Albumin Globulin Ratio 1.5 (1.0-2.8); Alkaline Phosphatase 58 U/L (38-126); Aspartate Aminotransferase 43 IU/L (17-59); BUN Creatinine Ratio 28.4 (6-22); Bilirubin Total 0.8 mg/dL (0.2-1.3); Blood Urea Nitrogen 25 mg/dL (9-20); Calcium 9.1 mg/dL (8.4-10.2); Carbon Dioxide 34 mmol/L (22-32); Chloride 100 mmol/L (98-107); Cholesterol 146 mg/dL (140-199); Estimated Glomerular Filt Rate > 60 mL/min (>60); Glucose 99 mg/dL (70-100); HDL Cholesterol 34 mg/dL (40-60); HEMOLYSIS < 15 (0-50); LDL Cholesterol Calculated 65 mg/dL (<100); Potassium 4.9 mmol/L (3.4-5.1); Sodium 139 mmol/L (137-145); Total Protein 7.5 g/dL (6.3-8.2); Triglycerides 233 mg/dL (35-150)
[2022-06-12 15:21] LABS: Prostate Specific Antigen Scrn 0.368 ng/mL (0.1-4.0)
== END ==
PROVIDERS: PCP Internal Medicine; Referring Provider Internal Medicine; Visit Provider Internal Medicine
DX: E66.2 Morbid (severe) obesity with alveolar hypoventilation (principal); E78.2 Mixed hyperlipidemia; I10 Essential (primary) hypertension; I42.9 Cardiomyopathy, unspecified; I50.9 Heart failure, unspecified; J44.9 Chronic obstructive pulmonary disease, unspecified; Z12.5 Encounter for screening for malignant neoplasm of prostate
CPT/HCPCS: 36415; 80053; 80061; 85025; G0103

== ENCOUNTER → 2022-06-20 10:00 | Outpatient (CLI) | payer OTHER, MEDICAID, SELFPAY ==
[2021-03-01 11:43] VITALS: PULSE 95; RESP 24; O2SAT 98
[2022-07-01 08:10] LABS: Percent Free Testosterone 3.68 % (1.50-4.20); Testosterone Free 6.79 ng/dL (5.00-21.00); Testosterone Total 184.6 ng/dL (264.0-916.0)
== END ==
PROVIDERS: PCP Internal Medicine; Referring Provider Internal Medicine; Visit Provider Internal Medicine
DX: R53.83 Other fatigue (principal)
CPT/HCPCS: 36415; 84402; 84403

== ENCOUNTER → 2022-06-24 16:56 | Outpatient (ROUT) | payer OTHER, MEDICAID, SELFPAY ==
[2021-03-01 11:43] VITALS: PULSE 95; RESP 24; O2SAT 98
[2022-06-27 18:05] LABS: Fecal Immunochemical Test Negative (Negative)
== END ==
PROVIDERS: PCP Internal Medicine; Visit Provider Internal Medicine
DX: Z12.11 Encounter for screening for malignant neoplasm of colon (principal)
CPT/HCPCS: 82274

== ENCOUNTER → 2022-07-09 08:37 | Outpatient (CLI) | payer OTHER, MEDICAID, SELFPAY ==
[2021-03-01 11:43] VITALS: PULSE 95; RESP 24; O2SAT 98
[2022-07-26 09:37] LABS: Percent Free Testosterone 4.13 % (1.50-4.20); Testosterone Free 3.76 ng/dL (5.00-21.00)
== END ==
PROVIDERS: PCP Internal Medicine; Referring Provider Internal Medicine; Visit Provider Internal Medicine
DX: E29.1 Testicular hypofunction (principal)
CPT/HCPCS: 36415; 84402; 84403

== ENCOUNTER → 2023-02-23 08:01 | Outpatient (CLI) | payer OTHER, MEDICAID, SELFPAY ==
[2021-03-01 11:43] VITALS: PULSE 95; RESP 24; O2SAT 98
[2023-02-23 09:51] LABS: Follicle Stimulating Hormone 4.56 mIU/mL; Luteinizing Hormone 3.13 mIU/mL
[2023-02-23 10:17] LABS: Testosterone 145 ng/dL (71.8-623)
== END ==
PROVIDERS: PCP Internal Medicine; Referring Provider Internal Medicine; Visit Provider Internal Medicine
DX: E29.1 Testicular hypofunction (principal)
CPT/HCPCS: 36415; 83001; 83002; 84403

== ENCOUNTER → 2023-07-23 09:50 | Outpatient (CLI) | payer OTHER, MEDICAID, SELFPAY ==
[2021-03-01 11:43] VITALS: PULSE 95; RESP 24; O2SAT 98
[2023-07-23 11:06] LABS: Add Manual Diff / Slide Review NO; Basophils Absolute Auto 100 /uL (0-100); Basophils Percent Auto 0.8 % (0-2); Eosinophils Absolute Auto 100 /uL (0-450); Hematocrit 46.5 % (41-53); Hemoglobin 15.9 g/dL (13.5-17.5); Lymphocytes Absolute Auto 2000 /uL (1100-4500); Lymphocytes Percent Auto 29.4 % (25-40); Mean Corpuscular HGB Conc 34.3 % (30-36); Mean Corpuscular Hemoglobin 30.6 PG (26-34); Mean Corpuscular Volume 89.2 fL (80-100); Monocytes Absolute Auto 600 /uL (0-900); Monocytes Percent Auto 8.5 % (3-14); Neutrophils Absolute Auto 4000 /uL (1500-7000); Neutrophils Percent Auto 59.3 % (50-75); Platelet Count 196 X10^3/uL (150-400); Red Blood Cell Count 5.21 X10^6/uL (4.5-5.9); Red Cell Distribution Width 13.1 % (11.6-14.8); White Blood Cell Count 6.8 X10^3/uL (4.5-11.0)
[2023-07-23 15:56] LABS: Alanine Aminotransferase 37 IU/L (<50); Albumin Globulin Ratio 1.4 (1.0-2.8); Alkaline Phosphatase 64 U/L (38-126); Aspartate Aminotransferase 42 IU/L (17-59); Bilirubin Total 0.6 mg/dL (0.2-1.3); Blood Urea Nitrogen 21 mg/dL (9-20); Calcium 9.4 mg/dL (8.4-10.2); Carbon Dioxide 31 mmol/L (22-32); Chloride 106 mmol/L (98-107); Cholesterol 143 mg/dL (140-199); Estimated Glomerular Filt Rate > 60 mL/min (>60); Globulin 2.8 g/dL (1.7-4.1); Glucose 94 mg/dL (70-100); HDL Cholesterol 34 mg/dL (40-60); HEMOLYSIS < 15 (0-50); LDL Cholesterol Calculated 73 mg/dL (<100); Potassium 4.2 mmol/L (3.4-5.1); Sodium 140 mmol/L (137-145); Total Protein 6.8 g/dL (6.3-8.2); Triglycerides 182 mg/dL (35-150)
[2023-07-23 16:28] LABS: Prostate Specific Antigen Scrn 0.399 ng/mL (0.1-4.0)
[2023-07-31 10:25] LABS: Percent Free Testosterone 4.88 % (1.50-4.20); Testosterone Free 6.12 ng/dL (5.00-21.00); Testosterone Total 125.5 ng/dL (264.0-916.0)
== END ==
PROVIDERS: PCP Internal Medicine; Referring Provider Internal Medicine; Visit Provider Internal Medicine
DX: Z12.5 Encounter for screening for malignant neoplasm of prostate (principal); E29.1 Testicular hypofunction; I50.9 Heart failure, unspecified; J44.9 Chronic obstructive pulmonary disease, unspecified; E78.2 Mixed hyperlipidemia; I11.0 Hypertensive heart disease with heart failure
CPT/HCPCS: 36415; 80053; 80061; 84402; 84403; 85025; G0103

== ENCOUNTER → 2023-07-24 16:59 | Outpatient (CLI) | payer OTHER, MEDICAID, SELFPAY ==
[2021-03-01 11:43] VITALS: PULSE 95; RESP 24; O2SAT 98
[2023-07-27 21:55] LABS: Fecal Immunochemical Test Negative (Negative)
== END ==
PROVIDERS: PCP Internal Medicine; Referring Provider Internal Medicine; Visit Provider Internal Medicine
DX: Z12.11 Encounter for screening for malignant neoplasm of colon (principal)
CPT/HCPCS: 82274